=== PATIENT | female | born 1985 | race Caucasian/White ===

== ENCOUNTER 2022-02-20 11:45 | Emergency (ER) | payer MEDICAID, OTHER ==
[2022-02-20] MEDS ORDERED: Dexamethasone 4 MG/ML SDV IM ONE (12:18)
== END 2022-02-20 13:00 | disposition home or self-care (01) ==
LOC: MERGE 11:45 → CC.ED 11:45
DX: S50.861A Insect bite (nonvenomous) of right forearm, initial encounter (principal); S40.862A Insect bite (nonvenomous) of left upper arm, initial encounter; Z88.5 Allergy status to narcotic agent; W57.XXXA Bitten or stung by nonvenomous insect and other nonvenomous arthropods, initial encounter
CPT/HCPCS: 96372; 99282; 99283; J1100